=== PATIENT | female | born 1975 | race Caucasian/White ===

== ENCOUNTER 2016-12-17 07:23 | Emergency (ER) | payer BC ==
[~2016-12-17] VITALS: Ht 149.9 cm; Wt 114.5 kg
[~2016-12-17 07:23] MED LIST: ABILIFY 10MG TA10 MG PO; CIPRO 500MG TA500 MG PO; MONONESSA 35 MC1 TA1 PO; PERCOCET 325 MG1 TA2 PO; ZOFRAN ODT4 MG PO; ZOLOFT 100MG100 MG PO
[2016-12-17 07:27] VITALS: TEMP 97.8
[2016-12-17 08:13] LABS: BASO % 0.6 % (0.0-2.0); EOS % 0.4 % (0-4.0); GRAN # 5.3 (1.4-6.5); GRAN % 76.9 % (42.2-75.2); HEMATOCRIT 40.7 % (37.0-47.0); HEMOGLOBIN 13.1 g/dl (12.5-16.0); LYMPH # 1.2 (1.2-3.4); LYMPH % 17.6 % (20.0-51.0); MEAN CELL VOLUME 91 fl (80.0-100.0); MEAN CORPUSCULAR HEMOGLOBIN 29 pg (27.0-31.0); MEAN CORPUSCULAR HGB CONC 32 g/dl (33.0-37.0); MEAN PLATELET VOLUME 8.6 fl (7.4-10.4); MONO # 0.3 (0.1-0.6); MONO % 4.2 % (1.7-9.3); PLATELET COUNT 262 K/mm3 (130-400); RED BLOOD COUNT 4.46 M/mm3 (4.10-5.30); REDCELL DISTRIBUTION WIDTH-CV 13.7 % (11.5-14.5); WHITE BLOOD COUNT 6.9 K/mm3 (4.8-10.8)
[2016-12-17 08:29] LABS: ADJUSTED CALCIUM 9.3 mg/dL (8.4-10.2); ALBUMIN 4.1 gm/dL (3.5-5.0); BILIRUBIN,TOTAL 0.7 mg/dL (0.0-1.0); C-REACTIVE PROTEIN 1.2 mg/dL (0.0-0.9); CALCIUM 9.4 mg/dL (8.4-10.2); CREATININE, serum 0.96 mg/dL (0.52-1.25); POTASSIUM 3.6 mmol/L (3.4-5.0); TOTAL PROTEIN 7.6 gm/dL (6.4-8.2)
[2016-12-17 08:53] LABS: PH 5 (5-8); URINE APPEARANCE Cloudy; URINE BACTERIA Rare /hpf; URINE BILIRUBIN Negative (NEGATIVE); URINE BLOOD 3+ (NEGATIVE); URINE COLOR Amber; URINE GLUCOSE Negative (NEGATIVE); URINE KETONE Negative (NEGATIVE); URINE RBC >50 /hpf; URINE UROBILINOGEN Negative (NEGATIVE); URINE WBC None Seen /hpf
[2016-12-17] MEDS ORDERED: PERCOCET 325 MG1 TA2 PO (09:51)
[2016-12-17] MEDS ORDERED: ZOFRAN ODT4 MG PO (09:51)
[2016-12-17] MEDS ORDERED: FLOMAX 0.40.4 MG/CAP PO (09:51)
[2016-12-17] MEDS ORDERED: MOTRIN 800800 MG/TAB PO (09:51)
[2016-12-17 11:35] VITALS: BP 111/65; PULSE 66
== END 2016-12-17 11:35 | disposition home or self-care (01) ==
LOC: COL.ER 07:23
PROVIDERS: Physician Assistant
DX: N20.0 Calculus of kidney (principal); Z87.442 Personal history of urinary calculi
CPT/HCPCS: J1170; J1885; J2405; J7030; Q9967

== ENCOUNTER 2016-12-19 08:52 | Day surgery (SDC) | payer BC ==
[~2016-12-19] VITALS: Ht 149.9 cm; Wt 114.8 kg
[~2016-12-19 08:52] MED LIST changes: +FLOMAX 0.40.4 MG/CAP PO; +MOTRIN 800800 MG/TAB PO
[2016-12-19 09:33] VITALS: BP 137/73; PULSE 73; TEMP 98.3
[2016-12-19] MEDS ORDERED: MULTI VITAMINS1 TAB PO (09:40)
[2016-12-19 12:02] VITALS: BP 141/78; PULSE 57; TEMP 98.3
[2016-12-19] MEDS ORDERED: PYRIDIUM 100MG100 MG PO (12:10)
[2016-12-19] MEDS ORDERED: ULTRAM 50MG TAB50 MG PO (12:10)
[2016-12-19 12:15] VITALS: BP 125/67; PULSE 58
[2016-12-19 12:30] VITALS: BP 129/66; PULSE 53
[2016-12-19 14:04] VITALS: BP 147/81; PULSE 57; TEMP 97.9
== END 2016-12-19 13:05 | disposition home or self-care (01) ==
LOC: SDCO 08:52
DX: N20.2 Calculus of kidney with calculus of ureter (principal); N13.30 Unspecified hydronephrosis
CPT/HCPCS: C1769; C2617; J0690; J1100; J1200; J1885; J2405; J2704; J3010; J7120; Q9967

== ENCOUNTER → 2018-01-18 | Outpatient (CLI) | payer BC ==
[~2018-01-18] MED LIST changes: +MULTI VITAMINS1 TAB PO; +PYRIDIUM 100MG100 MG PO; +ULTRAM 50MG TAB50 MG PO
== END ==
LOC: MC.RAD 06:54
DX: Z12.31 Encounter for screening mammogram for malignant neoplasm of breast (principal)

== ENCOUNTER → 2019-01-20 | Outpatient (CLI) | payer BC | LOC: MC.RAD 06:56 | DX: Z12.31 Encounter for screening mammogram for malignant neoplasm of breast (principal) ==

== ENCOUNTER → 2020-01-23 | Outpatient (CLI) | payer BC | LOC: MC.RAD 06:48 | DX: Z12.31 Encounter for screening mammogram for malignant neoplasm of breast (principal) ==

== ENCOUNTER 2020-02-07 06:26 | Day surgery (SDC) | payer BC ==
[~2020-02-07] VITALS: Ht 149.9 cm; Wt 117.8 kg
[2020-02-07 07:23] VITALS: BP 143/84; PULSE 99; TEMP 98.4
[2020-02-07] MEDS ORDERED: SPRINTEC 35 MCG1 TAB PO (07:32)
[2020-02-07] MEDS ORDERED: TYLENOL 500MG500 MG PO (07:33)
--- NOTE | 2020-02-07 07:36 | NUR ---
TO RM AT 0644- CALL LIGHT IN REACH WILL FOR RIDE HOME
[2020-02-07 09:57] VITALS: BP 129/60; PULSE 72; TEMP 98.2
--- NOTE | 2020-02-07 09:57 | NUR ---
TO RM 8 PER CART FROM PACU. ALERT ORIENTED X 3, C/O NOT FEELING GOOD. UPON RETURNING TO PATIENT AMBULATED TO BATHROOM WITH ASSIST. VOIDED LIGHT PINK URINE. AMBULATED BACK TO WITH ASSIST AND TOLERATED WELL.
[2020-02-07 10:09] VITALS: TEMP 98
[2020-02-07 10:15] VITALS: BP 140/82; PULSE 77
--- NOTE | 2020-02-07 10:15 | NUR ---
RECEIVED SPRITE AND PATIENT STATED SHE IS FEELING "SOME BETTER"
[2020-02-07 10:30] VITALS: BP 145/81; PULSE 70
--- NOTE | 2020-02-07 10:30 | NUR ---
RECEIVED JELLO AND PATIENT STATED SHE FEELS MUCH BETTER NOW. DENIES PAIN OR DISCOMFORT AT THIS TIME AND DENIES NAUSEA.
[2020-02-07 10:45] VITALS: BP 145/91; PULSE 71
--- NOTE | 2020-02-07 10:45 | NUR ---
PATIENT STATED SHE FELT SHE COULD GO HOME. DENIES PAIN OR DISCOMFORT AND DENIES NAUSEA. CALLED TO PICK HER UP.
--- NOTE | 2020-02-07 10:55 | NUR ---
RECEIVED DISCHARGE INSTRUCTIONS AND VERBALIZED UNDERSTANDING AND SIGNED CONSENT. DISCONTINUED IV AND INT- CATHETER INTACT. PATIENT GETTING DRESSED.
--- NOTE | 2020-02-07 11:23 | NUR ---
DISCHARGED PER WC BY NURSING STAFF TO PRIVATE CAR IN CARE OF .
== END 2020-02-07 11:24 | disposition home or self-care (01) ==
LOC: SDCO 06:26
DX: N20.1 Calculus of ureter (principal); F32.9 Major depressive disorder, single episode, unspecified; F41.9 Anxiety disorder, unspecified; Z11.59 Encounter for screening for other viral diseases; Z88.1 Allergy status to other antibiotic agents; Z88.8 Allergy status to other drugs, medicaments and biological substances; Z80.42 Family history of malignant neoplasm of prostate; Z90.49 Acquired absence of other specified parts of digestive tract; Z79.899 Other long term (current) drug therapy
CPT/HCPCS: C1769; C1894; C2617; J0690; J1100; J1885; J2405; J2550; J2704; J3010; J7120; Q9967

== ENCOUNTER → 2021-01-25 | Outpatient (CLI) | payer BC ==
[~2021-01-25] MED LIST changes: +SPRINTEC 35 MCG1 TAB PO; +TYLENOL 500MG500 MG PO
== END ==
LOC: MC.RAD 06:57
DX: Z12.31 Encounter for screening mammogram for malignant neoplasm of breast (principal)

== ENCOUNTER 2021-08-14 11:25 | Day surgery (SDC) | payer BC ==
[~2021-08-14] VITALS: Ht 149.9 cm; Wt 119.4 kg
[2021-08-14 12:29] VITALS: BP 143/72; PULSE 74; TEMP 97.8
[2021-08-14] MEDS ORDERED: MULTI VITAMINS1 TAB PO (12:37)
[2021-08-14 15:00] VITALS: BP 101/45; PULSE 80; TEMP 97.6
[2021-08-14 15:15] VITALS: BP 110/67; PULSE 63
[2021-08-14 15:30] VITALS: BP 97/53; PULSE 61
--- NOTE | 2021-08-14 16:15 | NUR ---
1500 - Patient returned via cart to [place] [facility]. Alert and oriented. Monitors on and alarms set. Sprite and applesause provided. Pt denies and pain or nausea. 1515- Patient tolerating food and drink well. Denies any discomfort. 1545- Patient assisted to restroom. Educated patient on how to use hat and strained and instructed to continue straining urine for the next week and bring stones to f/u appt. Patient able to void without difficulty, no stones present. 1615 - Transfered patient via wheelchair to personal vehicle to be driven home by .
== END 2021-08-14 16:15 | disposition home or self-care (01) ==
LOC: SDCO 11:25
DX: N20.1 Calculus of ureter (principal); E28.2 Polycystic ovarian syndrome; E66.01 Morbid (severe) obesity due to excess calories; G47.33 Obstructive sleep apnea (adult) (pediatric); F32.A Depression, unspecified; F41.9 Anxiety disorder, unspecified; Z90.49 Acquired absence of other specified parts of digestive tract; Z79.899 Other long term (current) drug therapy; Z99.89 Dependence on other enabling machines and devices; Z68.43 Body mass index [BMI] 50.0-59.9, adult
CPT/HCPCS: J0690; J1100; J1885; J2405; J2704; J3010

== ENCOUNTER → 2022-01-27 | Outpatient (CLI) | payer BC | LOC: MC.RAD 06:58 | DX: Z12.31 Encounter for screening mammogram for malignant neoplasm of breast (principal) ==

== ENCOUNTER 2023-07-06 14:19 | Day surgery (SDC) | payer BC ==
[~2023-07-06] VITALS: Ht 149.9 cm; Wt 112.0 kg
[2023-07-06] VITALS (7 sets, daily range): BP systolic 110–151; BP diastolic 57–80; PULSE 65–89; TEMP 98–98.4
[2023-07-06] MEDS ORDERED: PROBIOTIC BLEN1 EACH PO (15:07)
[2023-07-06] MEDS ORDERED: FOLIC ACID 11 MG/TA1 PO (15:08)
--- NOTE | 2023-07-06 15:43 | NUR ---
1445 PT AMBULATORY TO BAY 7 WITH STEADY GAIT, BREATHING EVEN AND UNLABORED. PT HAD EPISODE OF VOMITING GREENISH YELLOW BILE. REPORTS FEELIN A LITTLE BETTER AFTER EPISODE. PT IS ALERT AND ORIENTED. CONSENTS REVIEWED AND SIGNED BY PT. IV ESTABLISHED. BLOOD SPECIMEN OBTAINED AND TAKEN TO LAB. NS INFUSING VIA DIAL A FLOW AT 125 ML/HR. CALL LIGHT IN REACH. WARM BLANKET PROVIDED. RAIN LEVEL CURRENTLY 5/10 LEFT FLANK.
[2023-07-06] MEDS ORDERED: PYRIDIUM 100MG100 MG PO (17:41)
[2023-07-06] MEDS ORDERED: NORCO 325 MG-51 TAB PO (17:41)
--- NOTE | 2023-07-06 19:03 | NUR ---
Pt recently arrived to the floor from Pacu. Spouse is at bedside. Pt has been up and voided without difficulty. She does report that she has little to no pain and is ready to go home. I did give her some applesauce and informed her it would take a short time to get paperwork together.
--- NOTE | 2023-07-06 20:15 | NUR ---
PT WAS ABLE TO EAT DINNER TRAY WITHOUT N/V. DENIES PAIN. DISCHARGE INSTRUCTIONS REVIEWED WITH PT, VERBALIZED UNDERSTANDING. IV REMOVED FROM RT HAND, ANGIOCATH INTACT.
--- NOTE | 2023-07-06 20:26 | NUR ---
DISCHARGED VIA W/C TO PRIVATE CAR. PERSONAL BELONGINGS AND DISCHARGE INSTRUCTIONS SENT WITH PT.
== END 2023-07-06 20:26 | disposition home or self-care (01) ==
LOC: SDCO 14:19 → SURG 18:15 → SDCO 20:26
PROVIDERS: Urology
DX: N20.1 Calculus of ureter (principal); G47.33 Obstructive sleep apnea (adult) (pediatric); Z87.442 Personal history of urinary calculi; Z99.81 Dependence on supplemental oxygen
CPT/HCPCS: OP; C1769; C2617; J0690; J1100; J1885; J2405; J2704; J3010; J7030; Q9967

== ENCOUNTER → 2024-02-24 | Outpatient (CLI) | payer BC ==
[~2024-02-24] MED LIST changes: +FOLIC ACID 11 MG/TA1 PO; +NORCO 325 MG-51 TAB PO; +PROBIOTIC BLEN1 EACH PO
== END ==
LOC: MC.RAD 06:55
DX: Z12.31 Encounter for screening mammogram for malignant neoplasm of breast (principal)